=== PATIENT | male | born 1965 | race Hispanic/Latino ===

== ENCOUNTER 2025-04-17 01:49 | Inpatient (IN) | payer BC ==
[2025-04-17 02:22] LABS: #Basophils 0.07 10x3/uL (0.0-0.2); #Eosinophils 0.08 10x3/uL (0.0-0.7); #Monocytes 1.09 10x3/uL (0.11-0.59); #Neutrophils 14.70 10x3/uL (1.40-6.50); %Basophils 0.4 % (0.0-1.0); %Eosinophils 0.5 % (0.0-10.0); %Lymphocytes 6.4 % (21.0-51.0); %Monocytes 6.3 % (0.0-10.0); %Neutrophils 85.4 % (42.0-75.0); Hematocrit 49.2 % (42.0-52.0); Hemoglobin 17.0 g/dL (14.0-18.0); Mean Corpuscular Hemoglobin 29.3 pg (27.0-31.0); Mean Corpuscular Volume 84.8 fL (78.0-98.0); Platelet Count 225 10x3/uL (130-400); Red Blood Cell (RBC) Count 5.80 mill/uL (4.70-6.10); White Blood Cell (WBC) Count 17.21 10x3/uL (4.8-10.8)
[2025-04-17 02:37] LABS: ALT (SGPT) 76 U/L (Less than 45); AST (SGOT) 72 U/L (11-34); Albumin 3.3 g/dL (3.1-4.5); Alkaline Phosphatase 91 U/L (40-110); Anion Gap 17 mmol/L (10-20); BUN (Urea Nitrogen) 18 mg/dL (8.4-25.7); Bilirubin, Total 0.4 mg/dL (0.3-1.2); Calc. Creatinine Clearance 0 mL/min (70-130); Calcium 9.1 mg/dL (7.8-10.44); Carbon Dioxide 23 mmol/L (23-31); Chloride 102 mmol/L (98-107); Globulin 3.6 g/dL (2.4-3.5); Glucose 276 mg/dL (80-115); Potassium 3.5 mmol/L (3.5-5.1); Sodium 138 mmol/L (136-145)
[2025-04-17] MEDS ORDERED: Ondansetron PF 4 MG/2 ML Vial IVP PRN (04:04)
[2025-04-17] MEDS ORDERED: Acetaminophen 325 MG TAB PO PRN (04:04)
[2025-04-17] MEDS ORDERED: Calcium Carbonate 500 MG ChewTAB PO PRN (04:04)
[2025-04-17] MEDS ORDERED: Nitroglycerin 0.4 MG TAB (25 Tab Bottle) SL PRN (04:05)
[2025-04-17] MEDS ORDERED: Dextrose 50% Abboject 50 ML SYRINGE SLOW IVP PRN (04:06)
[2025-04-17] MEDS ORDERED: Glucagon 1 MG/ML KIT IM PRN (04:06)
[2025-04-17] MEDS ORDERED: Potassium Chloride 20 MEQ in Premix 1 BAG IVPB PRN (04:15)
[2025-04-17] MEDS ORDERED: Electrolyte Replacement Protocol 1 EACH FS SCH (04:15)
[2025-04-17] MEDS ORDERED: PHOS-NAK 1 PKT PACK PO PRN (04:15)
[2025-04-17] MEDS ORDERED: Magnesium 2 GM/50 ML(in water) 2 GM in Premix 1 BAG IVPB PRN (04:15)
[2025-04-17] MEDS ORDERED: Azithromycin 500 MG VIAL ONE (04:57)
[2025-04-17] MEDS ORDERED: cefTRIAXone (ROCEPHIN) 1 GM VIAL ONE (04:58)
[2025-04-17] MEDS: Aspirin Chewable 81 MG TAB PO SCH (07:24)
[2025-04-17] MEDS: Furosemide 40 MG (4 mL) VIAL SLOW IVP SCH (07:25)
[2025-04-17] MEDS: Dapagliflozin Propanediol 10 MG TAB PO SCH (08:08)
[2025-04-17] MEDS: Lisinopril 2.5 MG TAB PO SCH (08:08)
[2025-04-17] MEDS: Carvedilol 3.125 MG TAB PO SCH ×3 (08:08→09:23)
[2025-04-17] MEDS ORDERED: Lisinopril 2.5 MG TAB PO SCH (09:00)
[2025-04-17] MEDS: Lisinopril 10 MG TAB PO SCH (09:21)
[2025-04-17] MEDS: Carvedilol 6.25 MG TAB PO SCH ×2 (09:21→16:19)
[2025-04-17] MEDS: Lisinopril 5 MG TAB PO SCH (09:23)
[2025-04-17 12:47] LABS: Potassium 3.6 mmol/L (3.5-5.1)
[2025-04-17] MEDS ORDERED: Communication Order-Pharmacy FS SCH (18:30)
[2025-04-18 04:56] LABS: #Basophils 0.08 10x3/uL (0.0-0.2); #Eosinophils 0.25 10x3/uL (0.0-0.7); #Monocytes 0.83 10x3/uL (0.11-0.59); #Neutrophils 6.19 10x3/uL (1.40-6.50); %Basophils 0.8 % (0.0-1.0); %Eosinophils 2.5 % (0.0-10.0); %Lymphocytes 26.2 % (21.0-51.0); %Monocytes 8.3 % (0.0-10.0); %Neutrophils 61.8 % (42.0-75.0); Hematocrit 47.9 % (42.0-52.0); Hemoglobin 16.0 g/dL (14.0-18.0); Mean Corpuscular Hemoglobin 29.1 pg (27.0-31.0); Mean Corpuscular Volume 87.1 fL (78.0-98.0); Platelet Count 217 10x3/uL (130-400); Red Blood Cell (RBC) Count 5.50 mill/uL (4.70-6.10); White Blood Cell (WBC) Count 10.02 10x3/uL (4.8-10.8)
[2025-04-18 05:29] LABS: ALT (SGPT) 44 U/L (Less than 45); AST (SGOT) 26 U/L (11-34); Albumin 3.2 g/dL (3.1-4.5); Alkaline Phosphatase 80 U/L (40-110); Anion Gap 15 mmol/L (10-20); BUN (Urea Nitrogen) 18 mg/dL (8.4-25.7); Bilirubin, Total 0.9 mg/dL (0.3-1.2); Calc. Creatinine Clearance 64 mL/min (70-130); Calcium 9.1 mg/dL (7.8-10.44); Carbon Dioxide 29 mmol/L (23-31); Cardiac Risk 4.7 (Less than 4.5); Chloride 101 mmol/L (98-107); Cholesterol 260 mg/dl (< 200 Desired); Globulin 3.2 g/dL (2.4-3.5); Glucose 158 mg/dL (80-115); HDL Cholesterol 55 mg/dL (>60 Neg Risk); LDL Cholesterol, Calculated 169 mg/dL; Potassium 3.4 mmol/L (3.5-5.1); Sodium 142 mmol/L (136-145); Triglycerides 181 mg/dL (Less than 150)
[2025-04-18] MEDS: Lisinopril 10 MG TAB PO SCH ×3 (05:38→20:32)
[2025-04-18] MEDS: Aspirin Chewable 81 MG TAB PO SCH (05:38)
[2025-04-18] MEDS ORDERED: Lidocaine 1% (PF) 30 ML VIAL ONE (08:37)
[2025-04-18] MEDS ORDERED: Nitroglycerin 50 MG/250 ML BOT 250 ML ONE (08:37)
[2025-04-18] MEDS ORDERED: Heparin 10,000 UNITS/ 10 ML VIAL ONE (08:37)
[2025-04-18] MEDS ORDERED: Iopamidol 370 76% 100 ML VIAL ONE (09:25)
[2025-04-18] MEDS ORDERED: Adenosine 6 mg (2 mL) VIAL ONE (09:28)
[2025-04-18] MEDS ORDERED: hydrALAZINE 20 MG/ML VIAL ONE (10:00)
[2025-04-18] MEDS ORDERED: Nitroglycerin 0.4 MG TAB (25 Tab Bottle) SL PRN (11:04)
[2025-04-18 17:29] LABS: Potassium 3.7 mmol/L (3.5-5.1)
[2025-04-18] MEDS ORDERED: Communication Order-Pharmacy FS SCH (17:36)
[2025-04-19 04:59] LABS: #Basophils 0.08 10x3/uL (0.0-0.2); #Eosinophils 0.26 10x3/uL (0.0-0.7); #Monocytes 0.82 10x3/uL (0.11-0.59); #Neutrophils 5.17 10x3/uL (1.40-6.50); %Basophils 0.9 % (0.0-1.0); %Eosinophils 2.8 % (0.0-10.0); %Lymphocytes 31.2 % (21.0-51.0); %Monocytes 8.9 % (0.0-10.0); %Neutrophils 55.9 % (42.0-75.0); Hematocrit 50.2 % (42.0-52.0); Hemoglobin 16.6 g/dL (14.0-18.0); Mean Corpuscular Hemoglobin 28.9 pg (27.0-31.0); Mean Corpuscular Volume 87.5 fL (78.0-98.0); Platelet Count 220 10x3/uL (130-400); Red Blood Cell (RBC) Count 5.74 mill/uL (4.70-6.10); White Blood Cell (WBC) Count 9.24 10x3/uL (4.8-10.8)
[2025-04-19 05:38] LABS: Anion Gap 14 mmol/L (10-20); BUN (Urea Nitrogen) 22 mg/dL (8.4-25.7); Calc. Creatinine Clearance 59 mL/min (70-130); Calcium 9.1 mg/dL (7.8-10.44); Carbon Dioxide 27 mmol/L (23-31); Chloride 100 mmol/L (98-107); Glucose 135 mg/dL (80-115); Potassium 3.9 mmol/L (3.5-5.1); Sodium 137 mmol/L (136-145)
[2025-04-19] MEDS: Carvedilol 25 MG TAB PO SCH ×2 (09:39→16:59)
[2025-04-20 04:54] LABS: Anion Gap 17 mmol/L (10-20); BUN (Urea Nitrogen) 24 mg/dL (8.4-25.7); Calc. Creatinine Clearance 54 mL/min (70-130); Calcium 8.9 mg/dL (7.8-10.44); Carbon Dioxide 27 mmol/L (23-31); Chloride 103 mmol/L (98-107); Glucose 138 mg/dL (80-115); Potassium 3.5 mmol/L (3.5-5.1); Sodium 143 mmol/L (136-145)
[2025-04-20] MEDS ORDERED: PHENYLEPHRINE-NS 100 MCG/ML 10 ML SYRINGE ONE (07:47)
[2025-04-20] MEDS ORDERED: CEFAZOLIN 2 GM VIAL ONE (08:30)
[2025-04-20] MEDS ORDERED: Heparin 10,000 UNITS/1 ML VIAL 30,000 UNITS in Sodium Chloride 0.9% 1,000 ML FS SCH (09:15)
[2025-04-20] MEDS ORDERED: PROPOFOL 200 MG/20 ML VIAL ONE (09:39)
[2025-04-20] MEDS ORDERED: Calcium Chloride 1 GM/10 ML Abboject SYRINGE ONE (09:39)
[2025-04-20] MEDS ORDERED: Heparin 30,000 units/30 ml VIAL ONE (09:39)
[2025-04-20] MEDS ORDERED: Cardioplegic Soln 1,000 ML BAG ONE (09:39)
[2025-04-20] MEDS ORDERED: Thrombin 5000 UNITS/5 ML VIAL ONE (09:39)
[2025-04-20] MEDS ORDERED: Mannitol 12.5 GM/50 ML ONE (09:39)
[2025-04-20] MEDS ORDERED: Heparin 5,000 UNITS/ML VIAL ONE (09:39)
[2025-04-20] MEDS ORDERED: Mag-Al 1200 mg/1200 mg/30 ML UDCUP PO PRN (12:58)
[2025-04-20] MEDS ORDERED: Nitroglycerin 50 MG/250 ML BOT 250 ML IVPB PRN (12:58)
[2025-04-20] MEDS ORDERED: Guaifenesin DM 100-10/5 ML UDCUP PO PRN (12:58)
[2025-04-20] MEDS ORDERED: Bisacodyl 10 MG SUPP PR PRN (12:58)
[2025-04-20] MEDS ORDERED: NOREPINEPHRINE 8 MG/250 ML-D5W 250 ML IVPB PRN (12:58)
[2025-04-20] MEDS ORDERED: Albumin 5% 12.5 GM (250 mL) BOT IVPB PRN ×2 (12:58)
[2025-04-20] MEDS ORDERED: Ondansetron PF 4 MG/2 ML Vial IVP PRN (12:58)
[2025-04-20] MEDS ORDERED: Hetastarch 6% 500 ML 500 ML IVPB PRN (12:58)
[2025-04-20 13:09] LABS: Actual Bicarbonate (HCO3a) 21.3 mEq/L (22-28); Base Excess (BEa) -3.2 mEq/L (-2.0 to +3.0); CO2 Tension 36.2 mmHg (35.0-45.0); Calcium, Ionized (arterial) 1.11 mmol/L (1.12-1.30); Hematocrit-ABG 36 % (42.0-52.0); Hemoglobin (Hb) 12.2 g/dL (14.0-18.0); O2 Tension (PaO2), arterial 116.2 mmHg (> 80.0); Potassium - ABG Lab 3.57 mmol/L (3.70-5.30); pH, Arterial 7.387 (7.35-7.45)
[2025-04-20 13:10] LABS: Puncture Site Arterial Line
[2025-04-20 13:35] LABS: #Basophils 0.06 10x3/uL (0.0-0.2); #Eosinophils 0.27 10x3/uL (0.0-0.7); #Monocytes 0.94 10x3/uL (0.11-0.59); #Neutrophils 12.01 10x3/uL (1.40-6.50); %Basophils 0.4 % (0.0-1.0); %Eosinophils 1.7 % (0.0-10.0); %Lymphocytes 12.6 % (21.0-51.0); %Monocytes 6.1 % (0.0-10.0); %Neutrophils 77.8 % (42.0-75.0); Hematocrit 33.4 % (42.0-52.0); Hemoglobin 11.2 g/dL (14.0-18.0); Mean Corpuscular Hemoglobin 29.7 pg (27.0-31.0); Mean Corpuscular Volume 88.6 fL (78.0-98.0); Platelet Count 148 10x3/uL (130-400); Red Blood Cell (RBC) Count 3.77 mill/uL (4.70-6.10); White Blood Cell (WBC) Count 15.43 10x3/uL (4.8-10.8)
[2025-04-20] MEDS: D5 1/2 NS w/20 mEq KCL 1,000 ML IV SCH (13:42)
[2025-04-20] MEDS ORDERED: Dextrose 50% Abboject 50 ML SYRINGE SLOW IVP PRN (13:45)
[2025-04-20] MEDS ORDERED: Glucagon 1 MG/ML KIT SC PRN (13:45)
[2025-04-20] MEDS ORDERED: INSULIN REGULAR IN 0.9 % NACL 100 UNITS in Premix 1 BAG IVPB SCH (13:45)
[2025-04-20] MEDS ORDERED: Norepinephrine 8 MG/0.9% NS 250 ML IVPB SCH (13:45)
[2025-04-20 13:46] LABS: INR-International Normal Ratio 1.3; Prothrombin Time 16.7 sec (12.0-14.7)
[2025-04-20 13:47] LABS: PTT 35.7 sec (22.9-36.1)
[2025-04-20] MEDS: Magnesium 2 GM/50 ML(in water) 2 GM in Premix 1 BAG IVPB SCH (13:48)
[2025-04-20 13:51] LABS: Anion Gap 16 mmol/L (10-20); BUN (Urea Nitrogen) 21 mg/dL (8.4-25.7); Calc. Creatinine Clearance 73 mL/min (70-130); Calcium 7.5 mg/dL (7.8-10.44); Carbon Dioxide 21 mmol/L (23-31); Chloride 110 mmol/L (98-107); Glucose 105 mg/dL (80-115); Potassium 4.3 mmol/L (3.5-5.1); Sodium 143 mmol/L (136-145)
[2025-04-20] MEDS: Nitroglycerin 50 MG/250 ML BOT 250 ML ONE (15:08)
[2025-04-20 15:35] LABS: Actual Bicarbonate (HCO3a) 17.2 mEq/L (22-28); Base Excess (BEa) -6.0 mEq/L (-2.0 to +3.0); CO2 Tension 27.6 mmHg (35.0-45.0); Calcium, Ionized (arterial) 1.07 mmol/L (1.12-1.30); Hematocrit-ABG 37 % (42.0-52.0); Hemoglobin (Hb) 12.6 g/dL (14.0-18.0); O2 Tension (PaO2), arterial 83.0 mmHg (> 80.0); Potassium - ABG Lab 3.85 mmol/L (3.70-5.30); pH, Arterial 7.412 (7.35-7.45)
[2025-04-20] MEDS: Gabapentin 100 MG CAP PO SCH (15:35)
[2025-04-20 15:37] LABS: ALV-art Gradient 165.700 mmHg (0-20); Puncture Site Arterial Line
[2025-04-20 18:05] LABS: Hematocrit 36.5 % (42.0-52.0); Hemoglobin 12.3 g/dL (14.0-18.0)
[2025-04-20 18:59] LABS: Potassium 4.1 mmol/L (3.5-5.1)
[2025-04-20] MEDS: Mupirocin 1 GM TUBE TP SCH (20:43)
[2025-04-20] MEDS: Famotidine/PF 20 mg/2ml Vial SLOW IVP SCH (20:44)
[2025-04-20] MEDS: Post-Op Insulin Drip Protocol IVPB ONE (20:44)
[2025-04-21] MEDS: hydrALAZINE 20 MG/ML VIAL SLOW IVP PRN (02:55)
[2025-04-21 04:40] LABS: #Basophils Less than 0.03 10x3/uL (0.0-0.2); #Eosinophils Less than 0.03 10x3/uL (0.0-0.7); #Monocytes 1.21 10x3/uL (0.11-0.59); #Neutrophils 13.22 10x3/uL (1.40-6.50); %Basophils 0.1 % (0.0-1.0); %Eosinophils 0.0 % (0.0-10.0); %Lymphocytes 7.5 % (21.0-51.0); %Monocytes 7.7 % (0.0-10.0); %Neutrophils 83.9 % (42.0-75.0); Hematocrit 36.9 % (42.0-52.0); Hemoglobin 12.1 g/dL (14.0-18.0); Mean Corpuscular Hemoglobin 29.1 pg (27.0-31.0); Mean Corpuscular Volume 88.7 fL (78.0-98.0); Platelet Count 180 10x3/uL (130-400); Red Blood Cell (RBC) Count 4.16 mill/uL (4.70-6.10); White Blood Cell (WBC) Count 15.75 10x3/uL (4.8-10.8)
[2025-04-21 05:06] LABS: Anion Gap 17 mmol/L (10-20); BUN (Urea Nitrogen) 20 mg/dL (8.4-25.7); Calc. Creatinine Clearance 73 mL/min (70-130); Calcium 7.8 mg/dL (7.8-10.44); Carbon Dioxide 18 mmol/L (23-31); Chloride 109 mmol/L (98-107); Glucose 110 mg/dL (80-115); Magnesium 2.3 mg/dL (1.6-2.6); Potassium 4.0 mmol/L (3.5-5.1); Sodium 140 mmol/L (136-145)
[2025-04-21] MEDS ORDERED: Dextrose 50% Abboject 50 ML SYRINGE SLOW IVP PRN (07:28)
[2025-04-21] MEDS ORDERED: Glucagon 1 MG/ML KIT IM PRN (07:28)
[2025-04-21] MEDS: Enoxaparin 30 MG (0.3 mL) SYRINGE SC SCH (08:22)
[2025-04-21] MEDS: Carvedilol 6.25 MG TAB PO SCH (08:23)
[2025-04-21] MEDS: Aspirin 325 MG TAB PO SCH (08:23)
[2025-04-21] MEDS: Magnesium 2 GM/50 ML(in water) 2 GM in Premix 1 BAG IVPB SCH (08:23)
[2025-04-21] MEDS: Pantoprazole 40 MG DR.TAB PO SCH (08:23)
[2025-04-21] MEDS: Lisinopril 10 MG TAB PO SCH (10:47)
[2025-04-21] MEDS ORDERED: Insulin Glargine 30 UNITS/0.3 ML VIAL SC PRN (13:32)
[2025-04-21] MEDS: Transdermal Patch Removal TOP SCH (20:52)
[2025-04-22] MEDS: Digoxin 0.5 MG/2 ML AMP SLOW IVP SCH (04:22)
[2025-04-22] MEDS: dilTIAZem 25 MG/5 ML VIAL SLOW IVP SCH (04:24)
[2025-04-22 06:22] VITALS: BMI 25.2
[2025-04-22 06:59] LABS: #Basophils 0.03 10x3/uL (0.0-0.2); #Eosinophils Less than 0.03 10x3/uL (0.0-0.7); #Monocytes 1.54 10x3/uL (0.11-0.59); #Neutrophils 15.60 10x3/uL (1.40-6.50); %Basophils 0.2 % (0.0-1.0); %Eosinophils 0.0 % (0.0-10.0); %Lymphocytes 6.0 % (21.0-51.0); %Monocytes 8.4 % (0.0-10.0); %Neutrophils 84.9 % (42.0-75.0); Hematocrit 37.2 % (42.0-52.0); Hemoglobin 12.3 g/dL (14.0-18.0); Mean Corpuscular Hemoglobin 29.6 pg (27.0-31.0); Mean Corpuscular Volume 89.4 fL (78.0-98.0); Platelet Count 171 10x3/uL (130-400); Red Blood Cell (RBC) Count 4.16 mill/uL (4.70-6.10); White Blood Cell (WBC) Count 18.38 10x3/uL (4.8-10.8)
[2025-04-22 07:12] LABS: Anion Gap 15 mmol/L (10-20); BUN (Urea Nitrogen) 22 mg/dL (8.4-25.7); Calc. Creatinine Clearance 80 mL/min (70-130); Calcium 8.2 mg/dL (7.8-10.44); Carbon Dioxide 19 mmol/L (23-31); Chloride 103 mmol/L (98-107); Glucose 244 mg/dL (80-115); Potassium 3.7 mmol/L (3.5-5.1); Sodium 133 mmol/L (136-145)
[2025-04-22] MEDS: Furosemide 20 MG TAB PO SCH (07:45)
[2025-04-22] MEDS: Lisinopril 10 MG TAB PO SCH (07:47)
[2025-04-22] MEDS: Dapagliflozin Propanediol 10 MG TAB PO SCH (09:50)
[2025-04-22] MEDS: Potassium Chloride 20 MEQ (100 mL) BAG IVPB PRN (09:50)
[2025-04-22 12:24] VITALS: BMI 25.2
[2025-04-22 14:11] LABS: Potassium 4.1 mmol/L (3.5-5.1)
[2025-04-22 20:40] LABS: ALT (SGPT) 7 U/L (Less than 45); AST (SGOT) 16 U/L (11-34); Albumin 2.7 g/dL (3.1-4.5); Alkaline Phosphatase 59 U/L (40-110); Bilirubin, Direct 0.3 mg/dL (0.1-0.3); Bilirubin, Total 0.8 mg/dL (0.3-1.2); Magnesium 2.7 mg/dL (1.6-2.6)
[2025-04-22] MEDS ORDERED: diphenhydrAMINE 25 MG CAP PO PRN (21:29)
[2025-04-22] MEDS ORDERED: Artificial Tear Ophth Sol 15 ML BOT EA EYE PRN (21:29)
[2025-04-22] MEDS ORDERED: Mineral Oil ENEMA PR PRN (21:29)
[2025-04-22] MEDS ORDERED: Nitroglycerin 0.4 MG TAB (25 Tab Bottle) SL PRN (21:29)
[2025-04-23 04:05] LABS: #Basophils 0.03 10x3/uL (0.0-0.2); #Eosinophils 0.04 10x3/uL (0.0-0.7); #Monocytes 1.87 10x3/uL (0.11-0.59); #Neutrophils 10.10 10x3/uL (1.40-6.50); %Basophils 0.2 % (0.0-1.0); %Eosinophils 0.3 % (0.0-10.0); %Lymphocytes 13.1 % (21.0-51.0); %Monocytes 13.4 % (0.0-10.0); %Neutrophils 72.3 % (42.0-75.0); Hematocrit 34.9 % (42.0-52.0); Hemoglobin 11.3 g/dL (14.0-18.0); Mean Corpuscular Hemoglobin 29.0 pg (27.0-31.0); Mean Corpuscular Volume 89.5 fL (78.0-98.0); Platelet Count 155 10x3/uL (130-400); Red Blood Cell (RBC) Count 3.90 mill/uL (4.70-6.10); White Blood Cell (WBC) Count 13.97 10x3/uL (4.8-10.8)
[2025-04-23 04:22] LABS: Anion Gap 11 mmol/L (10-20); BUN (Urea Nitrogen) 24 mg/dL (8.4-25.7); Calc. Creatinine Clearance 75 mL/min (70-130); Calcium 8.1 mg/dL (7.8-10.44); Carbon Dioxide 24 mmol/L (23-31); Chloride 103 mmol/L (98-107); Glucose 127 mg/dL (80-115); Potassium 3.3 mmol/L (3.5-5.1); Sodium 135 mmol/L (136-145)
[2025-04-23] MEDS: Dapagliflozin Propanediol 10 MG TAB PO SCH (09:46)
[2025-04-23 13:37] LABS: Bacteria/HPF None Seen HPF (None Seen); CAUTI Indications for Culture Dysuria,urgency,freq; Glucose, Urine (Dipstick) Greater than 1000 mg/dL (Negative); Leukocyte Negative Leu/uL (Negative); Protein, Urine (Dipstick) Negative (Neg-Trace); RBC/HPF 0-3 HPF (0-3); Specific Gravity, Urine 1.031 (1.002-1.036); WBC/HPF 0-3 HPF (0-3)
[2025-04-23 13:39] LABS: Urine Culture Reflex No No
[2025-04-24] MEDS: Milk Of Magnesia 30 ML UDCUP PO PRN (04:49)
[2025-04-24 05:29] LABS: #Basophils 0.03 10x3/uL (0.0-0.2); #Eosinophils 0.12 10x3/uL (0.0-0.7); #Monocytes 1.41 10x3/uL (0.11-0.59); #Neutrophils 8.03 10x3/uL (1.40-6.50); %Basophils 0.3 % (0.0-1.0); %Eosinophils 1.0 % (0.0-10.0); %Lymphocytes 17.6 % (21.0-51.0); %Monocytes 12.0 % (0.0-10.0); %Neutrophils 68.2 % (42.0-75.0); Hematocrit 34.5 % (42.0-52.0); Hemoglobin 11.3 g/dL (14.0-18.0); Mean Corpuscular Hemoglobin 29.4 pg (27.0-31.0); Mean Corpuscular Volume 89.6 fL (78.0-98.0); Platelet Count 183 10x3/uL (130-400); Red Blood Cell (RBC) Count 3.85 mill/uL (4.70-6.10); White Blood Cell (WBC) Count 11.76 10x3/uL (4.8-10.8)
[2025-04-24 05:43] LABS: Anion Gap 13 mmol/L (10-20); BUN (Urea Nitrogen) 24 mg/dL (8.4-25.7); Calc. Creatinine Clearance 75 mL/min (70-130); Calcium 8.1 mg/dL (7.8-10.44); Carbon Dioxide 24 mmol/L (23-31); Chloride 104 mmol/L (98-107); Glucose 111 mg/dL (80-115); Potassium 3.6 mmol/L (3.5-5.1); Sodium 137 mmol/L (136-145)
[2025-04-24] MEDS: Acetaminophen 325 MG TAB PO PRN (08:36)
[2025-04-24] MEDS: Lisinopril 10 MG TAB PO SCH (11:40)
[2025-04-24] MEDS: Amiodarone 200 MG TAB PO SCH ×2 (11:40→20:41)
[2025-04-25 04:31] LABS: #Basophils 0.05 10x3/uL (0.0-0.2); #Eosinophils 0.14 10x3/uL (0.0-0.7); #Monocytes 1.18 10x3/uL (0.11-0.59); #Neutrophils 6.48 10x3/uL (1.40-6.50); %Basophils 0.5 % (0.0-1.0); %Eosinophils 1.4 % (0.0-10.0); %Lymphocytes 23.3 % (21.0-51.0); %Monocytes 11.4 % (0.0-10.0); %Neutrophils 62.6 % (42.0-75.0); Hematocrit 33.5 % (42.0-52.0); Hemoglobin 10.9 g/dL (14.0-18.0); Mean Corpuscular Hemoglobin 29.4 pg (27.0-31.0); Mean Corpuscular Volume 90.3 fL (78.0-98.0); Platelet Count 230 10x3/uL (130-400); Red Blood Cell (RBC) Count 3.71 mill/uL (4.70-6.10); White Blood Cell (WBC) Count 10.34 10x3/uL (4.8-10.8)
[2025-04-25 04:50] LABS: Anion Gap 15 mmol/L (10-20); BUN (Urea Nitrogen) 21 mg/dL (8.4-25.7); Calc. Creatinine Clearance 75 mL/min (70-130); Calcium 8.2 mg/dL (7.8-10.44); Carbon Dioxide 25 mmol/L (23-31); Chloride 105 mmol/L (98-107); Glucose 108 mg/dL (80-115); Potassium 3.4 mmol/L (3.5-5.1); Sodium 142 mmol/L (136-145)
[2025-04-25] MEDS: Lisinopril 10 MG TAB PO SCH (08:21)
[2025-04-26 03:43] LABS: #Basophils 0.06 10x3/uL (0.0-0.2); #Eosinophils 0.22 10x3/uL (0.0-0.7); #Monocytes 1.11 10x3/uL (0.11-0.59); #Neutrophils 6.74 10x3/uL (1.40-6.50); %Basophils 0.6 % (0.0-1.0); %Eosinophils 2.2 % (0.0-10.0); %Lymphocytes 18.7 % (21.0-51.0); %Monocytes 10.9 % (0.0-10.0); %Neutrophils 66.5 % (42.0-75.0); Hematocrit 35.0 % (42.0-52.0); Hemoglobin 11.1 g/dL (14.0-18.0); Mean Corpuscular Hemoglobin 28.8 pg (27.0-31.0); Mean Corpuscular Volume 90.7 fL (78.0-98.0); Platelet Count 284 10x3/uL (130-400); Red Blood Cell (RBC) Count 3.86 mill/uL (4.70-6.10); White Blood Cell (WBC) Count 10.14 10x3/uL (4.8-10.8)
[2025-04-26 03:56] LABS: Anion Gap 15 mmol/L (10-20); BUN (Urea Nitrogen) 18 mg/dL (8.4-25.7); Calc. Creatinine Clearance 37 mL/min (70-130); Calcium 8.4 mg/dL (7.8-10.44); Carbon Dioxide 24 mmol/L (23-31); Chloride 104 mmol/L (98-107); Glucose 116 mg/dL (80-115); Potassium 3.6 mmol/L (3.5-5.1); Sodium 139 mmol/L (136-145)
[2025-04-26 11:10] VITALS: TEMP 97.7
[2025-04-26 11:49] VITALS: BP 180/84
[2025-04-26] MEDS ORDERED: Sacubitril 24MG/Valsartan 26 MG TAB PO SCH (21:00)
== END 2025-04-26 16:30 | disposition home or self-care (01) | DRG 233 ==
LOC: ERS 01:49 → OBS 04:10 → CCU 04-20 13:01 → PCU 04-22 15:21
PROVIDERS: ADMIT Student in an Organized Health Care Education/Training Program; ATTEND Internal Medicine
PROC: B2111ZZ Fluoroscopy of Multiple Coronary Arteries using Low Osmolar Contrast (ICD-10-PCS; principal; 2025-04-17)
PROC: 4A023N7 Measurement of Cardiac Sampling and Pressure, Left Heart, Percutaneous Approach (ICD-10-PCS; 2025-04-17)
PROC: 02100Z9 Bypass Coronary Artery, One Artery from Left Internal Mammary, Open Approach (ICD-10-PCS; 2025-04-20)
PROC: 021 Heart and Great Vessels, Bypass (ICD-10-PCS; 2025-04-20)
PROC: 021109W Bypass Coronary Artery, Two Arteries from Aorta with Autologous Venous Tissue, Open Approach (ICD-10-PCS; 2025-04-20)
PROC: 06BQ4ZZ Excision of Left Saphenous Vein, Percutaneous Endoscopic Approach (ICD-10-PCS; 2025-04-20)
PROC: 02L70CK Occlusion of Left Atrial Appendage with Extraluminal Device, Open Approach (ICD-10-PCS; 2025-04-20)
PROC: 5A1221Z Performance of Cardiac Output, Continuous (ICD-10-PCS; 2025-04-20)
PROC: 3E080GC Introduction of Other Therapeutic Substance into Heart, Open Approach (ICD-10-PCS; 2025-04-20)
PROC: 4A133R1 Monitoring of Arterial Saturation, Peripheral, Percutaneous Approach (ICD-10-PCS; 2025-04-20)
PROC: 3E03329 Introduction of Other Anti-infective into Peripheral Vein, Percutaneous Approach (ICD-10-PCS; 2025-04-20)
PROC: 3E033XZ Introduction of Vasopressor into Peripheral Vein, Percutaneous Approach (ICD-10-PCS; 2025-04-20)
PROC: 03HY32Z Insertion of Monitoring Device into Upper Artery, Percutaneous Approach (ICD-10-PCS; 2025-04-20)
PROC: 4A133B1 Monitoring of Arterial Pressure, Peripheral, Percutaneous Approach (ICD-10-PCS; 2025-04-20)
PROC: 4A133J1 Monitoring of Arterial Pulse, Peripheral, Percutaneous Approach (ICD-10-PCS; 2025-04-20)
PROC: 02H633Z Insertion of Infusion Device into Right Atrium, Percutaneous Approach (ICD-10-PCS; 2025-04-20)
PROC: B518ZZA Fluoroscopy of Superior Vena Cava, Guidance (ICD-10-PCS; 2025-04-20)
DX: I21.4 Non-ST elevation (NSTEMI) myocardial infarction (principal); I50.23 Acute on chronic systolic (congestive) heart failure; J18.9 Pneumonia, unspecified organism; J96.01 Acute respiratory failure with hypoxia; I11.0 Hypertensive heart disease with heart failure; I24.89 Other forms of acute ischemic heart disease; E78.5 Hyperlipidemia, unspecified; F17.210 Nicotine dependence, cigarettes, uncomplicated; E11.65 Type 2 diabetes mellitus with hyperglycemia; I48.91 Unspecified atrial fibrillation; I25.10 Atherosclerotic heart disease of native coronary artery without angina pectoris; I25.5 Ischemic cardiomyopathy; Z79.899 Other long term (current) drug therapy; Z79.84 Long term (current) use of oral hypoglycemic drugs; Z79.891 Long term (current) use of opiate analgesic
CPT/HCPCS: 36415; 36416; 71045; 71250; 80048; 80053; 80061; 80076; 81001; 82805; 83036; 83735; 83880; 84100; 84443; 85025; 85610; 85730; 86850; 86900; 86901; 93005; 93010; 93306; 93458; 93798; 94002; 94150; 94760; 96365; 97139; 99152; A4311; A4648; C1751; C1769; C1889; C1894; J0153; J0169; J0282; J0360; J0456; J0665; J0696; J1100; J1160; J1308; J1642; J1644; J1650; J1815; J1940; J2003; J2151; J2250; J2440; J2704; J2720; J3010; J3373; J3475; J3480; J7070; P9045; Q9967; S0017